=== PATIENT | male | born 1990 | race Caucasian/White ===

== ENCOUNTER 2021-06-09 20:50 | Emergency (ER) | payer MEDICARE, OTHER ==
[~2021-06-09 20:50] MED LIST: CYCLOBENZAPRINE10 MG PO; MOTRIN600 MG PO; ROBAXIN500 MG PO
[2021-06-09] MEDS ORDERED: PERCOCET 5-3251 EACH PO (22:14)
== END 2021-06-09 22:43 | disposition home or self-care (01) ==
LOC: FER 20:50
DX: G89.18 Other acute postprocedural pain (principal); C73 Malignant neoplasm of thyroid gland; Z88.0 Allergy status to penicillin; Z88.4 Allergy status to anesthetic agent; Z88.6 Allergy status to analgesic agent
CPT/HCPCS: 99283